=== PATIENT | female | born 1985 | race Hispanic/Latino ===

== ENCOUNTER 2018-01-31 11:17 | Emergency (ER) | payer OTHER, SELFPAY ==
[2018-01-31] MEDS ORDERED: CLINDAMYCIN IV 150 MG/ML (4 mL) VIAL ONE (11:45)
[2018-01-31] MEDS ORDERED: ONDANSETRON 4 MG (ODT) TAB ONE (11:45)
--- NOTE | 2018-01-31 12:17 | RAD REPORT ---
EXAM DESCRIPTION: CT - Head C Spine Mpr Wo Con - 01/31/2018 11:52 am CLINICAL HISTORY: Head and neck injury status post fall. Head and neck pain COMPARISON: February 2017 TECHNIQUE: Computed axial tomography of the head and cervical spine was obtained. Sagittal and coronal reconstruction was performed. All CT scans are performed using dose optimization technique as appropriate and may include automated exposure control or mA/KV adjustment according to patient size. FINDINGS: An intracranial bleed is not seen. The ventricles are normal in caliber. An extra-axial fl uid collection is not noted.Fluid within the visualized sinuses and mastoids is not seen A cervical fracture is not visualized. No dislocation is noted. IMPRESSION: No acute intracranial abnormality is seen. A cervical fracture is not visualized. If the patient continues to have symptoms to suggest intracra nial /spinal cord pathology then MRI would be recommended
--- NOTE | 2018-01-31 12:19 | RAD REPORT ---
EXAM DESCRIPTION: RAD - Pelvis - 01/31/2018 12:07 pm CLINICAL HISTORY: Pelvic pain status post injury FINDINGS: No fracture or dislocation is seen. If the patient continues to have symptoms to suggest an occult fracture then MRI would be recommended
--- NOTE | 2018-01-31 12:25 | ER ---
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 aj Reports right hip pain and pain to back of head. Patient believes she may have hit her head on the toilet, reports vomiting x 2 episodes. Ambulated to triage with limp. Patient drove herself to ER. Denies LOC. Care prior to arrival: None. Mechanism of Injury: Fall from standing position. Trauma event details: Injury occurred in the [facility], Injury occurred: at home. Injury occurred: January 31, 2018 Injury occurred at: 11:00. 11:22 Acuity: ANITA 3 aj 11:22 Method Of Arrival: Ambulatory 11:40 Transition of care: patient was not received from another setting of care. Onset of em symptoms was January 31, 2018. Risk Assessment: Do you want to hurt yourself or someone else? Patient reports no desire to harm self or others. Initial Sepsis Screen: Does the patient meet any 2 criteria? No. Patient's initial sepsis screen is negative. Does the patient have a suspected source of infection? No. Patient's initial sepsis screen is negative. 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 - Social history:: Smoking status: Patient/guardian denies using tobacco. - Ebola Screening: : Patient negative for fever greater than or equal to 101.5 degrees Fahrenheit, and additional compatible Ebola Virus Disease symptoms Patient denies exposure to infectious person Patient denies travel to an Ebola-affected area in the 21 days before illness onset No symptoms or risks identified at this time. Screenin:28 Abuse screen: Denies threats or abuse. Nutritional screening: No deficits noted. em Tuberculosis screening: No symptoms or risk factors identified. Fall Risk Fall in past 12 months (25 points). Gait- Normal/Bed Rest/Wheelchair (0 pts) Mental Status- Oriented to own ability (0 pts). Total Jon Fall Scale indicates Low Risk Score (25-44 pts). Side Rails Up X 2 Frequent Obs/Assesments occuring. Primary Survey: 11:22 A: Airway: patent. Breathing/Chest: Respiratory pattern: regular, Respiratory effort: aj spontaneous, unlabored, Breath sounds: clear, Chest inspection: symmetrical rise and fall of the chest. Circulation: Skin color: pink. Disability Alert. 12:20 Reassessment Airway Airway Patent Breathing/Chest Respiratory pattern Regular em Circulation Color [place] Disability Alert. Assessment: 11:22 General: Appears in no apparent distress. uncomfortable, Behavior is calm, cooperative, aj appropriate for age. Pain: Complains of pain in scalp, right hip and right leg. Neuro: Level of Consciousness is awake, alert, obeys commands, Oriented to person, place, time, situation, Appropriate for age. Respiratory: Airway is patent Respiratory effort is even, unlabored, Respiratory pattern is regular, symmetrical. GI: Reports nausea. Derm: Skin is intact, is healthy with good turgor, Skin is pink, warm \T\ dry. normal. Musculoskeletal: Reports pain in right hip and right leg. 12:20 Reassessment: Patient appears in no apparent distress at this time. Patient and/or em family updated on plan of care and expected duration. Pain level reassessed. Patient is alert, oriented x 3, equal unlabored respirations, skin warm/dry/pink. Vital Signs: 11:22 BP 136 / 89; Pulse 81; Resp 19; Temp 97.7; Pulse Ox 99% on R/A; Weight 113.4 kg; Height aj 5 ft. 4 in. (162.56 cm); 12:20 BP 124 / 74; Pulse 72; Resp 16; Temp 98.0(O); Pulse Ox 98% on R/A; Pain 5/10; em 11:22 Body Mass Index 42.91 (113.40 kg, 162.56 cm) aj [place] Coma Score: 11:22 Eye Response: spontaneous(4). Verbal Response: oriented(5). Motor Response: obeys aj commands(6). Total: 15. Trauma Score (Adult): 11:22 Eye Response: spontaneous(1); Verbal Response: oriented(1); Motor Response: obeys aj commands(2); Systolic BP: > 89 mm Hg(4); Respiratory Rate: 10 to 29 per min(4); [place] Score: 15; Trauma Score: 12 ED Course: 11:19 Patient arrived in ED. mr 11:24 Triage completed. aj 11:26 Андрей Munoz LVN is Primary Nurse. em 11:26 Arm band placed on right wrist. Patient placed in an exam room. aj 11:27 Humble Mendez PA is PHCP. jmm 11:27 Mac Jones MD is Attending Physician. [facility] 11:28 PHCP role handed off by Humble Mendez PA snw 11:28 Rafaela Smith FNP-C is PHCP. snw 11:28 Patient has correct armband on for positive identification. Bed in low position. Call em light in reach. 11:34 Radiology exam delayed due to test not completed at this time. sj 11:40 Patient maintains SpO2 saturation greater than 95% on room air. Thermoregulation: warm em blanket given to patient. 11:49 CT completed. Patient tolerated procedure well. Patient moved to CT via stretcher. mw3 Patient moved to radiology. 11:52 CT Head C Spine In Process Unspecified. EDMS 12:07 Pelvis XRAY In Process Unspecified. EDMS 12:36 No provider procedures requiring assistance completed. Patient did not have IV access em during this emergency room visit. Administered Medications: 11:43 Drug: Zofran 4 mg Route: PO; em 12:39 Follow up: Response: Nausea is decreased em 11:45 Drug: Clindamycin 300 mg Route: IM; Site: left gluteus; em 12:39 Follow up: Response: No adverse reaction em Intake: 12:20 PO: 0ml; Total: 0ml. em Outcome: 12:24 Discharge ordered by . snw 12:36 Discharged to home ambulatory. em 12:36 Condition: good 12:36 Discharge instructions given to patient, Instructed on discharge instructions, follow up and referral plans. medication usage, Demonstrated understanding of instructions, follow-up care, medications, Prescriptions given X 2. 12:37 Patient's length of stay was not longer than 2 hours. em 12:40 Patient left the ED. em Signatures: Dispatcher [employer] Kristine Oquendo, RN RN Rafaela Fuentes, USED BUILDING MATERIALS YARD WORKER-C USED BUILDING MATERIALS YARD WORKER-Csnw Humble Mendez PA PA jmm Rivera, Mary mr Balaji, Андрей Moreland, FAMILY SOCIOLOGIST FAMILY SOCIOLOGIST em Marisa Diehl mw3
--- NOTE | 2018-01-31 12:25 | EDPHYS ---
Physician Documentation [facility] Name: Meredith Marroquin Age: 32 yrs Sex: Female : 1985 Arrival Date: 01/31/2018 Time: 11:19 Bed 13 Private MD: ED Physician Mac Jones HPI: 01/31 11:40 This 32 yrs old Female presents to ER via Ambulatory with complaints of Fall snw Injury. 11:40 Details of fall: The patient fell from an upright position, showering. Onset: The snw symptoms/episode began/occurred suddenly, just prior to arrival. Associated injuries: The patient sustained injury to the head, injury to the chest, contusion of right hip. Severity of symptoms: At their worst the symptoms were moderate, in the emergency department the symptoms are unchanged. The patient has not experienced similar symptoms in the past. pt was showering to get ready for Doctor's appt to see about abscess to left upper shoulder when she slipped and fell onto right hip on bathtub ledge, may have struck head on toilet, no LOC but pt did vomit x [address] to the ED. Denies LOC. 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 - Social history:: Smoking status: Patient/guardian denies using tobacco. - Ebola Screening: : Patient negative for fever greater than or equal to 101.5 degrees Fahrenheit, and additional compatible Ebola Virus Disease symptoms Patient denies exposure to infectious person Patient denies travel to an Ebola-affected area in the 21 days before illness onset No symptoms or risks identified at this time. ROS: 11:36 Constitutional: Negative for fever, chills, and weight loss, Eyes: Negative for injury, snw pain, redness, and discharge, ENT: Negative for injury, pain, and discharge, Neck: Negative for injury, pain, and swelling, Cardiovascular: Negative for chest pain, palpitations, and edema, Respiratory: Negative for shortness of breath, cough, wheezing, and pleuritic chest pain. 11:36 Back: Negative for injury and pain, : Negative for injury, bleeding, discharge, and swelling, Skin: Negative for injury, rash, and discoloration. 11:36 Abdomen/GI: Positive for vomiting, x 2. 11:36 MS/extremity: Positive for injury or acute deformity, contusion, of the right lower back and right gluteus miles. 11:36 Neuro: Positive for dizziness, Negative for loss of consciousness. Exam: 11:36 Constitutional: This is a well developed, well nourished patient who is awake, alert, snw and in no acute distress. Head/Face: Normocephalic, atraumatic. Eyes: Pupils equal round and reactive to light, extra-ocular motions intact. Lids and lashes normal. Conjunctiva and sclera are non-icteric and not injected. Cornea within normal limits. Periorbital areas with no swelling, redness, or edema. ENT: Nares patent. No nasal discharge, no septal abnormalities noted. Tympanic membranes are normal and external auditory canals are clear. Oropharynx with no redness, swelling, or masses, exudates, or evidence of obstruction, uvula midline. Mucous membranes moist. Neck: Trachea midline, no thyromegaly or masses palpated, and no cervical lymphadenopathy. Supple, full range of motion without nuchal rigidity, or vertebral point tenderness. No Meningismus. Chest/axilla: Normal chest wall appearance and motion. Nontender with no deformity. No lesions are appreciated. Cardiovascular: Regular rate and rhythm with a normal S1 and S2. No gallops, murmurs, or rubs. Normal PMI, no JVD. No pulse deficits. Respiratory: Lungs have equal breath sounds bilaterally, clear to auscultation and percussion. No rales, rhonchi or wheezes noted. No increased work of breathing, no retractions or nasal flaring. Abdomen/GI: Soft, non-tender, with normal bowel sounds. No distension or tympany. No guarding or rebound. No evidence of tenderness throughout. Back: No spinal tenderness. No costovertebral tenderness. Full range of motion. right hip contusion, ambulatory, no vertebral tenderness, + soft tissue area of induration to left upper shoulder, cellulitis (spouse opened and expressed pus from area last pm) Skin: Warm, dry with normal turgor. Normal color with no rashes, no lesions, and no evidence of cellulitis except as noted above MS/ Extremity: Pulses equal, no cyanosis. Neurovascular intact. Full, normal range of motion. Neuro: Awake and alert, GCS 15, oriented to person, place, time, and situation. Cranial nerves II-XII grossly intact. Motor strength 5/5 in all extremities. Sensory grossly intact. Cerebellar exam normal. Normal gait. Psych: Awake, alert, with orientation to person, place and time. Behavior, mood, and affect are within normal limits. Vital Signs: 11:22 BP 136 / 89; Pulse 81; Resp 19; Temp 97.7; Pulse Ox 99% on R/A; Weight 113.4 kg; Height aj 5 ft. 4 in. (162.56 cm); 12:20 BP 124 / 74; Pulse 72; Resp 16; Temp 98.0(O); Pulse Ox 98% on R/A; Pain 5/10; em 11:22 Body Mass Index 42.91 (113.40 kg, 162.56 cm) aj [place] Coma Score: 11:22 Eye Response: spontaneous(4). Verbal Response: oriented(5). Motor Response: obeys aj commands(6). Total: 15. Trauma Score (Adult): 11:22 Eye Response: spontaneous(1); Verbal Response: oriented(1); Motor Response: obeys aj commands(2); Systolic BP: > 89 mm Hg(4); Respiratory Rate: 10 to 29 per min(4); [place] Score: 15; Trauma Score: 12 MDM: 11:28 Patient medically screened. snw 12:27 Data reviewed: vital signs, nurses notes, radiologic studies, CT scan. Data snw interpreted: Pulse oximetry: on room air is 99 %. Interpretation: normal. Counseling: I had a detailed discussion with the patient and/or guardian regarding: the historical points, exam findings, and any diagnostic results supporting the discharge/admit diagnosis, the presence of at least one elevated blood pressure reading (>120/80) during this emergency department visit, the need for outpatient follow up, to return to the emergency department if symptoms worsen or persist or if there are any questions or concerns that arise at home. Special discussion: I have referred the patient to see his PCP for further evaluation of high blood pressure. Based on the patient's history, exam and DX evaluation, there is no indication for emergent intervention or inpatient TX. It is understood by the patient/guardian that if the SXs persist or worsen they need to return immediately for re-evaluation. I discussed in detail with the patient the higher chance of wound infection based on his presenting history. Based on the history and exam findings, there is no indication for further emergent testing or inpatient evaluation. I discussed with the patient/guardian the need to see the primary care provider for further evaluation of the symptoms. 01/31 11:29 Order name: CT Head C Spine; Complete Time: 12:19 snw 01/31 11:41 Order name: Urine Dipstick--Ancillary (enter results) eb 01/31 11:41 Order name: Urine --Ancillary (enter results) eb 01/31 11:44 Order name: Pelvis XRAY; Complete Time: 12:22 snw 01/31 11:29 Order name: Urine Test (obtain specimen); Complete Time: 11:37 snw 01/31 11:29 Order name: Urine Dipstick-Ancillary (obtain specimen); Complete Time: 11:37 snw Administered Medications: 11:43 Drug: Zofran 4 mg Route: PO; em 12:39 Follow up: Response: Nausea is decreased em 11:45 Drug: Clindamycin 300 mg Route: IM; Site: left gluteus; em 12:39 Follow up: Response: No adverse reaction em Disposition: 13:41 Co-signature as Attending Physician, Mac Jones MD. rn Disposition: 01/31/18 12:24 Discharged to Home. Impression: Fall on same level, unspecified, Cutaneous abscess of back [any part, except buttock]. - Condition is Stable. - Discharge Instructions: Skin Abscess, Fall Prevention in the Home, Heat Therapy. - Prescriptions for Clindamycin HCl 300 mg Oral Capsule - take 1 capsule by ORAL route every 6 hours for 10 days; 40 capsule. Diclofenac Sodium 75 mg Oral Tablet Sustained Release - take 1 tablet by ORAL route 2 times per day; 30 tablet. orphenadrine citrate 100 mg Oral Tablet Sustained Release - take 1 tablet by ORAL route 2 times per day As needed; 20 tablet. - Work release form, Medication Reconciliation Form, Thank You Letter, Antibiotic Education, Prescription Opioid Use form. - Follow up: Private Physician; When: 2 - 3 days; Reason: Recheck today's complaints, Continuance of care, Re-evaluation by your physician. Follow up: Emergency Department; When: As needed; Reason: Worsening of condition. Signatures: Dispatcher [employer] EDMO Kristine Ghotra, RN RN Rafaela Fuentes, ATOMIC PHYSICS PROFESSOR-C ATOMIC PHYSICS PROFESSOR-Csnw Андрей Munoz, BOTTOM LINER BOTTOM LINER em Mac Jones MD MD internal consultant: (The following items were deleted from the chart) 11:38 11:30 UA MICROSCOPIC+U.LAB.BRZ ordered. [facility] EDMO 11:39 11:30 Urine Culture+BA.LAB.BRZ ordered. [facility] EDMO 12:40 12:24 01/31/2018 12:24 Discharged to Home. Impression: Fall on same level, unspecified; em Cutaneous abscess of back [any part, except buttock]. Condition is Stable. Forms are Medication Reconciliation Form, Thank You Letter, Antibiotic Education, Prescription Opioid Use. Follow up: Private Physician; When: 2 - 3 days; Reason: Recheck today's complaints, Continuance of care, Re-evaluation by your physician. Follow up: Emergency Department; When: As needed; Reason: Worsening of condition. snw
[2018-01-31 13:14] VITALS: BP 124/74; TEMP 98; O2SAT 98
[2018-01-31 14:04] LABS: Urine Blood TRACE (NEG); Urine Glucose NEGATIVE (NEG); Urine Protein NEGATIVE (NEG); Urine pH 5.5 (5.0-7.0)
== END 2018-01-31 12:40 | disposition home or self-care (01) ==
LOC: ER 11:17
DX: L02.212 Cutaneous abscess of back [any part, except buttock and flank] (principal); W01.198A Fall on same level from slipping, tripping and stumbling with subsequent striking against other object, initial encounter; Y93.E1 Activity, personal bathing and showering; Y92.9 Unspecified place or not applicable
CPT/HCPCS: 70450; 72125; 72170; 81003; 81025; 96372; 99284; S0077

== ENCOUNTER 2019-02-21 12:39 | Emergency (ER) | payer OTHER ==
[2019-02-21] MEDS ORDERED: NA CHLORIDE 0.9% 1,000 ML ONE (13:04)
[2019-02-21] MEDS ORDERED: KETOROLAC 30 MG/ML INJ ONE (13:04)
[2019-02-21] MEDS ORDERED: ONDANSETRON 4 MG/2 ML VIAL ONE (13:04)
[2019-02-21 13:31] LABS: Absolute Lymphocytes (CBC) 0.9 K/uL (0.7-4.9); Basophils % 0.4 % (0-1.3); Hematocrit 40.1 % (36.0-45.0); Lymphocytes % 12.1 % (15.3-44.8); MPV 7.9 fL (7.6-11.3); RBC Red Blood Cell Count 4.56 M/uL (3.86-4.86)
[2019-02-21 13:43] LABS: ALT/SGPT 19 U/L (12-78); AST/SGOT 4 U/L (15-37); Albumin 3.6 g/dL (3.4-5.0); Alkaline Phosphatase 89 U/L (45-117); BUN Blood Urea Nitrogen 9 mg/dL (7-18); Bicarbonate 27 mmol/L (21-32); Bilirubin Direct 0.2 mg/dL (0-0.2); Bilirubin Total 0.7 mg/dL (0.2-1.0); Glucose Level 87 mg/dL (74-106); Lipase 186 U/L (73-393); Potassium 3.6 mmol/L (3.5-5.1); Protein, Total 8.2 g/dL (6.4-8.2); Sodium Level 139 mmol/L (136-145)
[2019-02-21 14:09] LABS: Urine Blood 1+ (NEG); Urine Glucose NEGATIVE (NEG); Urine Protein NEGATIVE (NEG); Urine pH 5.5 (5.0-7.0)
--- NOTE | 2019-02-21 14:11 | RAD REPORT ---
EXAM DESCRIPTION: CT - Stone Protocol - 02/21/2019 2:01 pm CLINICAL HISTORY: Flank pain. Abd pain;Flank pain COMPARISON: Abdomen Pelvis W Contrast dated 08/30/2016 TECHNIQUE: Axial images were obtained without oral or IV contrast. Lack of contrast limits solid org an and vascular assessment. The [id number] spans the entirety of the system partially obscuring uppermost abdomen and lung bases. Coronal reformatted images were obtained and reviewed. All CT scans are performed using dose optimization technique as appropriate and may include automated exposure control or mA/KV adjustment according to patient size. FINDINGS: The lower lung jaffe are clear. Imaged portions of the liver and spleen show no suspicious findings on non-contrast imaging. The panc reas and adrenal glands are normal. No pathologic lymphadenopathy in the abdomen or pelvis. No urinary tract stones or obstructive uropathy. No bowel obstruction, free air, free fluid or abscess. Normal appendix noted. No significant bony abnormality. IUD is present in the uterus. IMPRESSION: No urinary tract stones or obstructive uropathy.
--- NOTE | 2019-02-21 14:28 | ER ---
Nurse's Notes [facility] Name: Meredith Marroquin Age: 33 yrs Sex: Female : 1985 Arrival Date: 02/21/2019 Time: 12:40 Bed 20 Private MD: Diagnosis: Generalized abdominal pain;Vomiting, unspecified Presentation: 02/21 12:47 Presenting complaint: Patient states: "Back pain and abdominal pain, she saw her Dr luis yesterday and had an ultrasound, that said she had a lot of liver inflammation, so I had lab work that they are suppose to get back Saturday but the pain came back worse last night" Patient reports epigastric pain, vomiting, back pain. Transition of care: patient was not received from another setting of care. Onset of symptoms was 2018. Risk Assessment: Do you want to hurt yourself or someone else? Patient reports no desire to harm self or others. Initial Sepsis Screen: Does the patient meet any 2 criteria? No. Patient's initial sepsis screen is negative. Does the patient have a suspected source of infection? Yes: Acute abdominal pain. Care prior to arrival: None. 12:47 Method Of Arrival: Ambulatory aj 12:47 Acuity: ANITA 3 aj1 Triage Assessment: 12:49 General: Appears in no apparent distress. uncomfortable, Behavior is calm, cooperative, aj1 appropriate for age. Pain: Complains of pain in back and epigastric area Pain currently is 7 out of 10 on a pain scale. Neuro: Level of Consciousness is awake, alert, obeys commands. Cardiovascular: Patient's skin is warm and dry. Respiratory: Airway is patent Respiratory effort is even, unlabored, Respiratory pattern is regular, symmetrical. GI: Reports upper abdominal pain, nausea, vomiting. 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 - Social history:: Smoking status: Patient/guardian denies using tobacco. - Ebola Screening: : Patient denies travel to an Ebola-affected area in the 21 days before illness onset. Screenin:55 Abuse screen: Denies threats or abuse. Nutritional screening: No deficits noted. rb1 Tuberculosis screening: No symptoms or risk factors identified. Fall Risk None identified. Assessment: 12:55 General: Appears uncomfortable, Behavior is calm, cooperative, Reports fever for. Pain: rb1 Complains of pain in epigastric area Pain currently is 8 out of 10 on a pain scale. at worst was 10 out of 10 on a pain scale. Pain began x 5 days. Neuro: Level of Consciousness is awake, alert, obeys commands, Oriented to person, place, time, situation. Cardiovascular: Capillary refill < 3 seconds is brisk in bilateral fingers. Respiratory: Airway is patent Respiratory effort is even, unlabored, Respiratory pattern is regular, symmetrical. GI: Bowel sounds present X 4 quads. Abd is soft in epigastric area Reports diarrhea, nausea, vomiting. : No signs and/or symptoms were reported regarding the genitourinary system. Derm: Skin is pink, warm \\T\\ dry. 13:48 Reassessment: Patient appears in no apparent distress at this time. No changes from rb1 previously documented assessment. 14:45 Reassessment: Patient appears in no apparent distress at this time. Patient and/or rb1 family updated on plan of care and expected duration. Pain level reassessed. Patient is alert, oriented x 3, equal unlabored respirations, skin warm/dry/pink. Vital Signs: 12:49 BP 152 / 93; Pulse 86; Resp 18; Temp 98.3; Pulse Ox 98% on R/A; Weight 113.85 kg (R); aj1 Height 5 ft. 4 in. (162.56 cm) (R); Pain 7/10; 13:48 BP 125 / 64; Pulse 67; Resp 17; Pulse Ox 97% ; Pain 7/10; rb1 14:45 BP 128 / 71; Pulse 69; Resp 17; Pulse Ox 99% on R/A; Pain 5/10; rb1 12:49 Body Mass Index 43.08 (113.85 kg, 162.56 cm) aj1 ED Course: 12:40 Patient arrived in ED. as 12:46 [facility] kb 12:46 Nikolas Serrano MD is Attending Physician. kb 12:49 Triage completed. aj1 12:49 Arm band placed on Patient placed in an exam room. aj1 12:55 Patient has correct armband on for positive identification. Bed in low position. Call rb1 light in reach. Side rails up X 1. Pulse ox on. NIBP on. 13:00 Katelynn Treviño, RN is Primary Nurse. rb1 13:10 Inserted saline lock: 22 gauge in right antecubital area, using aseptic technique. rb1 Blood collected. 14:02 CT completed. Patient tolerated procedure well. Patient moved back from CT. mw3 14:02 CT Stone Protocol In Process Unspecified. EDMS 14:59 No provider procedures requiring assistance completed. IV discontinued, intact, rb1 bleeding controlled, No redness/swelling at site. Pressure dressing applied. Administered Medications: 13:10 Drug: NS 0.9% 1000 ml Route: IV; Rate: 1000 ml; Site: right antecubital; rb1 14:22 Follow up: IV Status: Completed infusion rb1 13:10 Drug: Zofran 4 mg Route: IVP; Site: right antecubital; rb1 13:25 Follow up: Response: No adverse reaction; Nausea is decreased rb1 13:10 Drug: TORadol - Ketorolac 15 mg Route: IVP; Site: right antecubital; rb1 13:25 Follow up: Response: No adverse reaction; Pain is decreased rb1 Outcome: 14:28 Discharge ordered by MD. kb 14:59 Patient left the ED. rb1 14:59 Discharged to home ambulatory. rb1 14:59 Condition: stable 14:59 Discharge instructions given to patient, Instructed on discharge instructions, follow up and referral plans. medication usage, Demonstrated understanding of instructions, follow-up care, medications, Prescriptions given X 2. Signatures: Dispatcher [employer] ED[facility] Jessica Harris, STAFF INTERNIST OFFICE BASED ONLY-C STAFF INTERNIST OFFICE BASED ONLY-Ckb Yamila Sandy, RN RN aj1 Leatha Christianson as Katelynn Treviño, RN RN rb1 Marisa Diehl mw3 Corrections: (The following items were deleted from the chart) 13:25 12:55 GI: Bowel sounds present X 4 quads. Reports diarrhea, nausea, vomiting, rb1 rb1
--- NOTE | 2019-02-21 14:28 | EDPHYS ---
Physician Documentation [facility] Name: Meredith Marroquin Age: 33 yrs Sex: Female : 1985 Arrival Date: 02/21/2019 Time: 12:40 Bed 20 Private MD: ED Physician Nikolas Serrano HPI: 02/21 14:48 This 33 yrs old Female presents to ER via Ambulatory with complaints of kb Abdominal Pain, Headache. 14:48 The patient presents with abdominal pain. Onset: The symptoms/episode began/occurred 5 kb day(s) ago. The symptoms do not radiate. Associated signs and symptoms: Pertinent positives: nausea, vomiting, and diarrhea, fever. The symptoms are described as constant. Modifying factors: The symptoms are alleviated by nothing, the symptoms are aggravated by nothing. Severity of pain: At its worst the pain was moderate in the emergency department the pain is unchanged. The patient has not experienced similar symptoms in the past. The patient has been recently seen by a physician: the patient's primary care provider, yesterday. 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 - Social history:: Smoking status: Patient/guardian denies using tobacco. - Ebola Screening: : Patient denies travel to an Ebola-affected area in the 21 days before illness onset. ROS: 14:47 ENT: Negative for injury, pain, and discharge, Neck: Negative for injury, pain, and kb swelling, Cardiovascular: Negative for chest pain, palpitations, and edema, Respiratory: Negative for shortness of breath, cough, wheezing, and pleuritic chest pain, Back: Negative for injury and pain, MS/Extremity: Negative for injury and deformity, Skin: Negative for injury, rash, and discoloration, Neuro: Negative for headache, weakness, numbness, tingling, and seizure. 14:47 Constitutional: Positive for fever. 14:47 Abdomen/GI: Positive for abdominal pain, nausea, vomiting, and diarrhea. Exam: 14:48 Constitutional: This is a well developed, well nourished patient who is awake, alert, kb and in no acute distress. Head/Face: Normocephalic, atraumatic. ENT: Nares patent. No nasal discharge, no septal abnormalities noted. Tympanic membranes are normal and external auditory canals are clear. Oropharynx with no redness, swelling, or masses, exudates, or evidence of obstruction, uvula midline. Mucous membranes moist. Neck: Trachea midline, no thyromegaly or masses palpated, and no cervical lymphadenopathy. Supple, full range of motion without nuchal rigidity, or vertebral point tenderness. No Meningismus. Chest/axilla: Normal chest wall appearance and motion. Nontender with no deformity. No lesions are appreciated. Cardiovascular: Regular rate and rhythm with a normal S1 and S2. No gallops, murmurs, or rubs. Normal PMI, no JVD. No pulse deficits. Respiratory: Lungs have equal breath sounds bilaterally, clear to auscultation and percussion. No rales, rhonchi or wheezes noted. No increased work of breathing, no retractions or nasal flaring. Abdomen/GI: Soft, non-tender, with normal bowel sounds. No distension or tympany. No guarding or rebound. No evidence of tenderness throughout. Back: No spinal tenderness. No costovertebral tenderness. Full range of motion. Skin: Warm, dry with normal turgor. Normal color with no rashes, no lesions, and no evidence of cellulitis. MS/ Extremity: Pulses equal, no cyanosis. Neurovascular intact. Full, normal range of motion. Neuro: Awake and alert, GCS 15, oriented to person, place, time, and situation. Cranial nerves II-XII grossly intact. Motor strength 5/5 in all extremities. Sensory grossly intact. Cerebellar exam normal. Normal gait. Vital Signs: 12:49 BP 152 / 93; Pulse 86; Resp 18; Temp 98.3; Pulse Ox 98% on R/A; Weight 113.85 kg (R); aj1 Height 5 ft. 4 in. (162.56 cm) (R); Pain 7/10; 13:48 BP 125 / 64; Pulse 67; Resp 17; Pulse Ox 97% ; Pain 7/10; rb1 14:45 BP 128 / 71; Pulse 69; Resp 17; Pulse Ox 99% on R/A; Pain 5/10; rb1 12:49 Body Mass Index 43.08 (113.85 kg, 162.56 cm) aj1 MDM: 12:51 Patient medically screened. kb 14:47 Data reviewed: vital signs, nurses notes. Data interpreted: Pulse oximetry: on room air kb is 97 %. Interpretation: normal. Counseling: I had a detailed discussion with the patient and/or guardian regarding: the historical points, exam findings, and any diagnostic results supporting the discharge/admit diagnosis, lab results, radiology results, the need for outpatient follow up, to return to the emergency department if symptoms worsen or persist or if there are any questions or concerns that arise at home. 02/21 12:54 Order name: Basic Metabolic Panel; Complete Time: 13:49 kb 02/21 12:54 Order name: CBC with Diff; Complete Time: 13:38 kb 02/21 12:54 Order name: Hepatic Function; Complete Time: 13:49 kb 02/21 12:54 Order name: Lipase; Complete Time: 13:49 kb 02/21 13:30 Order name: Urine Dipstick--Ancillary (enter results); Complete Time: 14:11 eb 02/21 13:30 Order name: Urine --Ancillary (enter results); Complete Time: 14:11 eb 02/21 12:54 Order name: IV Saline Lock; Complete Time: 13:21 kb 02/21 12:54 Order name: Labs collected and sent; Complete Time: 13:21 kb 02/21 12:54 Order name: Urine Dipstick-Ancillary (obtain specimen); Complete Time: 13:30 kb 02/21 13:38 Order name: Flu; Complete Time: 14:27 kb 02/21 13:40 Order name: CT Stone Protocol; Complete Time: 14:13 kb Administered Medications: 13:10 Drug: NS 0.9% 1000 ml Route: IV; Rate: 1000 ml; Site: right antecubital; rb1 14:22 Follow up: IV Status: Completed infusion rb1 13:10 Drug: Zofran 4 mg Route: IVP; Site: right antecubital; rb1 13:25 Follow up: Response: No adverse reaction; Nausea is decreased rb1 13:10 Drug: TORadol - Ketorolac 15 mg Route: IVP; Site: right antecubital; rb1 13:25 Follow up: Response: No adverse reaction; Pain is decreased rb1 Disposition: 02/21/19 14:28 Discharged to Home. Impression: Generalized abdominal pain, Vomiting, unspecified. - Condition is Stable. - Discharge Instructions: Nausea and Vomiting, Adult, [id number], Abdominal Pain, Adult, [id number]. - Prescriptions for Bentyl 20 mg Oral Tablet - take 1 tablet by ORAL route every 6 hours As needed; 20 tablet. Zofran 4 mg Oral Tablet - take 1 tablet by ORAL route every 6 hours As needed; 20 tablet. - Medication Reconciliation Form, Thank You Letter, Antibiotic Education, Prescription Opioid Use form. - Follow up: Emergency Department; When: As needed; Reason: Worsening of condition. Follow up: Private Physician; When: 2 - 3 days; Reason: Recheck today's complaints, Continuance of care, Re-evaluation by your physician. Addendum: 02/24/2019 07:07 Co-signature as Attending Physician, Nikolas Serrano MD I agree with the assessment and c porter plan of care. Signatures: Dispatcher [employer] EDJessica Canales, KE-Sha DEMPSEY-Yamila Lee, RN RN aj1 Nikolas Serrano MD MD cha Barber, Rebecca, RN RN rb1 Corrections: (The following items were deleted from the chart) 02/21 14:28 14:28 02/21/2019 14:28 Discharged to Home. Impression: Generalized abdominal pain. kb Condition is Stable. Forms are Medication Reconciliation Form, Thank You Letter, Antibiotic Education, Prescription Opioid Use. Follow up: Emergency Department; When: As needed; Reason: Worsening of condition. Follow up: Private Physician; When: 2 - 3 days; Reason: Recheck today's complaints, Continuance of care, Re-evaluation by your physician. kb 14:59 14:28 02/21/2019 14:28 Discharged to Home. Impression: Generalized abdominal pain; rb1 Vomiting, unspecified. Condition is Stable. Forms are Medication Reconciliation Form, Thank You Letter, Antibiotic Education, Prescription Opioid Use. Follow up: Emergency Department; When: As needed; Reason: Worsening of condition. Follow up: Private Physician; When: 2 - 3 days; Reason: Recheck today's complaints, Continuance of care, Re-evaluation by your physician. kb
[2019-02-21 16:51] VITALS: TEMP 98.3
[2019-02-21 16:52] VITALS: BP 125/64; O2SAT 97
== END 2019-02-21 14:59 | disposition home or self-care (01) ==
LOC: ER 12:39
DX: R11.10 Vomiting, unspecified (principal)
CPT/HCPCS: 96361; 85025; 80048; 36415; 81025; 80076; 81003; 83690; 87804 ×2; 76377; 74176; 96375; 96374; 99284; J7030; J2405

== ENCOUNTER 2019-11-23 08:06 | Day surgery (SDC) | payer OTHER ==
[2019-11-11 14:43] LABS: Basophils % 0.7 % (0-1.3); Hematocrit 40.2 % (36.0-45.0); Lymphocytes % 24.4 % (15.3-44.8); MPV 8.1 fL (7.6-11.3); RBC Red Blood Cell Count 4.53 M/uL (3.86-4.86)
[2019-11-11 15:17] LABS: ALT/SGPT 19 U/L (12-78); AST/SGOT 6 U/L (15-37); Albumin 3.6 g/dL (3.4-5.0); Alkaline Phosphatase 85 U/L (45-117); Amylase 43 U/L (25-115); BUN Blood Urea Nitrogen 17 mg/dL (7-18); Bicarbonate 25 mmol/L (21-32); Bilirubin Direct 0.1 mg/dL (0-0.2); Bilirubin Total 0.5 mg/dL (0.2-1.0); Glucose Level 85 mg/dL (74-106); Lipase 176 U/L (73-393); Protein, Total 8.2 g/dL (6.4-8.2); Sodium Level 142 mmol/L (136-145)
--- OUTSIDE RECORDS SUMMARY | 2019-11-23 08:12 | XMS REPORT | Continuity of Care Document ---
:1985 Author Organization [facility] t Address [address] [place] [address] Care Team Providers Name Role Phone Lab, Fam Pob I Attending Clinician Unavailable Problems This patient has no known problems. Allergies, Adverse Reactions, Alerts This patient has no known allergies or adverse reactions. Medications This patient has no known medications. Procedures This patient has no known procedures. Encounters Start End Encounter Admission Attending Care Care Encounter Source Date/Time Date/Time Type Type Clinicians Facility Department ID 2019-11-05 2019-11-05 Laboratory Lab, [facility] [id number] 15:25:31 15:45:31 Only Fam Pob I [facility] [id number] [place] [id number] Professio [phone] [place] [address] [address] One Results This patient has no known results.
[2019-11-23 08:27] LABS: Specific Gravity 1.025 (1.005-1.030)
[2019-11-23] MEDS ORDERED: Ringers Lactate 1,000 ML IV ONE ×2 (08:39→10:49)
[2019-11-23] MEDS ORDERED: CEFOXITIN/SWI 1gm 0 GM/0 ML SYR ONE (08:39)
[2019-11-23] MEDS ORDERED: propofoL 200 MG/20 ML VIAL IV ONE (08:41)
[2019-11-23] MEDS ORDERED: KETOROLAC 30 MG/ML INJ ONE (08:42)
[2019-11-23] MEDS ORDERED: dexAMETHasone 10 MG/ML VIAL ONE (08:42)
[2019-11-23] MEDS ORDERED: MIDAZOLAM HCL 2 MG/2 ML INJ ONE (08:42)
[2019-11-23] MEDS ORDERED: FENTANYL CITR 100 MCG/2 ML ONE ×2 (08:42→10:12)
[2019-11-23] MEDS ORDERED: LIDOCAINE 2% MPF 5 ML VIAL ONE (08:42)
[2019-11-23] MEDS ORDERED: ROCURONIUM 50 MG/5 ML VIAL IV ONE ×2 (08:42→09:33)
[2019-11-23] MEDS ORDERED: DIPHENHYDRAMINE 50 MG/ML VIAL ONE (08:42)
[2019-11-23] MEDS ORDERED: ONDANSETRON 4 MG/2 ML VIAL ONE (08:43)
[2019-11-23] MEDS ORDERED: GLYCOPYRROLATE 0.2 MG/ML SYR ONE (10:42)
[2019-11-23] MEDS ORDERED: NEOSTIGMINE 1 MG/ML -5 ML ONE (10:45)
[2019-11-23] MEDS: HYDROMORPHONE HCL 1 MG/ML INJ ONE ×2 (11:19→11:24)
[2019-11-23] MEDS ORDERED: PROMETHAZINE INJ 25 MG/ML AMP ONE (11:33)
[2019-11-23] MEDS: FENTANYL CITR 100 MCG/2 ML ONE ×2 (11:34→11:49)
--- NOTE | 2019-11-23 12:05 | OP ---
Date of Procedure: 11/23/2019 Surgeon: Raul Nieves MD Pediatric Physician: SOCORRO Silva. Preoperative Diagnosis: Back mass and chronic cholecystitis and biliary dyskinesia. Postoperative Diagnosis: Back mass and chronic cholecystitis and biliary dyskinesia. Procedures: 1.Wide excision of back mass 6 x 4 cm with layered closure. 2.Laparoscopic cholecystectomy. Estimated Blood Loss: Minimal. Specimen: Lipoma and gallbladder. Findings: As above. Anesthesia: General. Complications: None. Drains: Quarter-inch Haswell on the back wound. Disposition: The patient tolerated the procedure in stable condition, taken to Recovery in good gene ral condition. Description Of Procedure: The patient was brought to the OR and placed in supine position. General anesthesia was begun. The patient was placed in the right lateral position, prepped and draped in th e usual sterile fashion. Marcaine 0.5% was infiltrated locally. Then 15 blade was used to make appr oximately a 6 cm incision. Subcutaneous tissue was divided, subcutaneous tissue all the way down to the muscle layer. There was a fatty tumor present. It was approximately 6 x 4 cm in diameter. It w as excised. Sent to Pathology as specimen. Wound was irrigated. Bleeding was controlled with caute ry. Quarter-inch Haswell drain was placed in the empty space and secured with 3-0 nylon and 2-0 cold mill inspector carri was used to approximate the subcutaneous tissue and 3-0 nylon used to close skin. Sterile dressi ng was applied. Patient was awakened and taken to Recovery in good general condition. Then patient was placed in the supine position. The abdomen was prepped and draped in the usual sterile fashion. Marcaine 0.5% was infiltrated locally. 15 blade was used to make a 1 cm supraumbilical midline inci jero. Subcutaneous tissues were divided. Fascia was identified and divided. #1 Vicryl stay suture was placed. Peritoneal cavity was entered with sharp and blunt dissection. 12 mm trocar was placed into the peritoneal cavity under direct vision. Pneumoperitoneum was established and then three 5 mm trocars were placed, 1 in the epigastrium just to the right of midline and 2 in the right subcostal region. Laparoscopy revealed some inflammation at the infundibulum and the body of the gallbladder, which was taken down with sharp and blunt dissection. Fundus was retracted superiorly. Infundibulum was identified and retracted inferolaterally. Cystic duct and cystic artery were clearly identified with blunt dissection. Clips were placed. Both structures were divided and cautery was used to rem ove the gallbladder from the liver bed. Bleeding on the liver bed was controlled with cautery and th en gallbladder retrieved through the umbilicus via an EndoCatch bag. Right upper quadrant was examin ed. No evidence of bleeding or bile leakage appreciated. Then all trocars were removed under direct vision. There was some oozing noted from the epigastric trocar site. Then Endo Close was used. Th en #1 Vicryl was used to close this wound on the fascial level in the center fashion and the oozing w as easily controlled. No other bleeding noted from the other trocar sites subsequently. Stay suture s were tied to each other across the fascial defect. Subcutaneous wounds were irrigated. Bleeding w as controlled with cautery. 3-0 chromic was used to reapproximate subcutaneous tissue and shanon us ed to close the skin. Sterile dressing was applied. The patient was awakened and taken to Recovery in good general condition. Discharge Note: The patient will go to Day Surgery and home when stable. Disposition: Home. Condition: Stable. Discharge Instructions: Resume home medications and diet. Activity as tolerated. No heavy lifting. Remove outer dressing in 2 days. Shower. Keep wound clean, dry. Dry gauze to the back wound mason goldstein Tylenol No.3 one tablet p.o. q.4 p.r.n. pain, Keflex 500 mg p.o. q.8. Follow up in my office in 1 week. Call for appointment. Incentive spirometry is ordered. /MODL Voice ID: [id number] Report ID: [id number]
[2019-11-23] MEDS ORDERED: HYDROCODONE/APAP 7.5/325 MG TAB ONE (12:54)
[2019-11-23 13:14] VITALS: BP 167/78; TEMP 97.1; O2SAT 97
== END 2019-11-23 13:50 | disposition home or self-care (01) ==
LOC: OR 08:06
PROVIDERS: ATTEND Surgery
PROC: 0FT44ZZ Resection of Gallbladder, Percutaneous Endoscopic Approach (ICD-10-PCS; principal; 2019-11-23 09:00)
PROC: 0JB70ZZ Excision of Back Subcutaneous Tissue and Fascia, Open Approach (ICD-10-PCS; 2019-11-23 09:00)
DX: K81.1 Chronic cholecystitis (principal); D17.1 Benign lipomatous neoplasm of skin and subcutaneous tissue of trunk; Z11.59 Encounter for screening for other viral diseases
CPT/HCPCS: 47562; 21931; 85025; 80048; 36415; 82150; 81025; 80076; 88304 ×2; 83690; U0002; J2704; J2550; J1200; J2250; J3010 ×3; J1100; J1170; J2710; J7120 ×2; J2405; 88305

== ENCOUNTER 2019-11-23 20:45 | Observation (INO) | payer OTHER ==
--- OUTSIDE RECORDS SUMMARY | 2019-11-23 20:47 | XMS REPORT | Continuity of Care Document ---
:1985 Author Organization [facility] t Address [address] [place] [address] Care Team Providers Name Role Phone Lab, [...] Facility Department ID 2019-11-05 2019-11-05 Laboratory Lab, [facility] [id number] 15:25:31 15:45:31 Only Fam Pob I [facility] [id number] [place] [id number] Professio [phone] [place] [address] [address] One Results This patient has no known results.
[2019-11-23 21:49] LABS: Absolute Lymphocytes (CBC) 0.7 K/uL (0.7-4.9); Basophils % 0.3 % (0-1.3); Lymphocytes % 6.5 % (15.3-44.8); RBC Red Blood Cell Count 4.34 M/uL (3.86-4.86)
[2019-11-23] MEDS ORDERED: MORPHINE 4 MG/ML SYR ONE (21:51)
[2019-11-23] MEDS ORDERED: FAMOTIDINE 20 MG/2 ML VIAL IV ONE (21:52)
[2019-11-23] MEDS ORDERED: ONDANSETRON 4 MG/2 ML VIAL ONE (21:52)
[2019-11-23] MEDS ORDERED: NA CHLORIDE 0.9% 1,000 ML ONE (21:52)
[2019-11-23 22:03] LABS: ALT/SGPT 63 U/L (12-78); AST/SGOT 54 U/L (15-37); Albumin 3.3 g/dL (3.4-5.0); Alkaline Phosphatase 78 U/L (45-117); BUN Blood Urea Nitrogen 11 mg/dL (7-18); Bicarbonate 20 mmol/L (21-32); Bilirubin Direct < 0.1 mg/dL (0-0.2); Bilirubin Total 0.5 mg/dL (0.2-1.0); Glucose Level 145 mg/dL (74-106); Lipase 158 U/L (73-393); Potassium 3.6 mmol/L (3.5-5.1); Protein, Total 7.2 g/dL (6.4-8.2); Sodium Level 141 mmol/L (136-145)
--- NOTE | 2019-11-23 22:24 | ER ---
Nurse's Notes [facility] Name: Meredith Marroquin Age: 34 yrs Sex: Female : 1985 Arrival Date: 11/23/2019 Time: 20:47 Bed 13 Private MD: NATHALY COTA Diagnosis: Abdominal tenderness-sp lap appy;Bandemia;Atelectasis Presentation: 11/22 20:51 Chief complaint: Patient states: Gall bladder and mass on back removed today. C/O of ca1 pain at 1800 today. Took prescribed Tylenol 3# at 1645, and Advil 200mg x 3 at 2100. No relief and the pain has increased. Coronavirus screen: Client denies travel out of the [place] in the last 14 days. At this time, the client does not indicate any symptoms associated with coronavirus-19. Ebola Screen: Patient negative for fever greater than or equal to 101.5 degrees Fahrenheit, and additional compatible Ebola Virus Disease symptoms Patient denies exposure to infectious person. Patient denies travel to an Ebola-affected area in the 21 days before illness onset. No symptoms or risks identified at this time. Initial Sepsis Screen: Does the patient meet any 2 criteria? No. Patient's initial sepsis screen is negative. Does the patient have a suspected source of infection? No. Patient's initial sepsis screen is negative. Risk Assessment: Do you want to hurt yourself or someone else? Patient reports no desire to harm self or others. Onset of symptoms was November 23, 2019. 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 - Social history:: Smoking status: Patient denies any tobacco usage or history of. - Family history:: not pertinent. Screenin:57 Abuse screen: Denies threats or abuse. Denies injuries from another. Nutritional mg2 screening: No deficits noted. Tuberculosis screening: No symptoms or risk factors identified. Fall Risk IV access (20 points). Assessment: 21:57 General: Appears in no apparent distress. uncomfortable, Behavior is calm, cooperative. mg2 Pain: Complains of pain in abdomen. Neuro: Level of Consciousness is awake, alert, obeys commands, Oriented to person, place, time, situation. Cardiovascular: Capillary refill < 3 seconds Patient's skin is warm and dry. Respiratory: Airway is patent Respiratory effort is even, unlabored, Respiratory pattern is regular, symmetrical. GI: Reports lower abdominal pain, upper abdominal pain. : No signs and/or symptoms were reported regarding the genitourinary system. EENT: No signs and/or symptoms were reported regarding the EENT system. Derm: Skin is intact, is healthy with good turgor, Skin is pink, warm \T\ dry. normal. Musculoskeletal: Circulation, motion, and sensation intact. Capillary refill < 3 seconds. 11/23 10:27 Reassessment: Gave report to ELMA Alvarez. Information from the SBAR was given. All rb1 questions asked and answered. Vital Signs: 11/22 20:51 BP 137 / 83; Pulse 75; Resp 16 S; Temp 98.7(O); Pulse Ox 98% on R/A; Weight 118.39 kg ca1 (R); Height 5 ft. 4 in. (162.56 cm) (R); 20:51 Body Mass Index 44.80 (118.39 kg, 162.56 cm) ca1 ED Course: 20:47 Patient arrived in ED. am2 20:47 NATHALY COTA is Private Physician. am2 20:54 Triage completed. ca1 20:55 Arm band placed on right wrist. ca1 21:18 Viral Mccall, ELMA is Primary Nurse. mg2 21:25 Nikolas Serrano MD is Attending Physician. sylvia 21:30 Inserted saline lock: 20 gauge in right antecubital area, using aseptic technique. mg2 Blood collected. 21:39 Radiology exam delayed due to IV insertion attempt and/or patient not having vm2 appropriate IV at this time. 21:57 No provider procedures requiring assistance completed. mg2 21:58 Patient has correct armband on for positive identification. Door closed. Warm blanket mg2 given. 22:06 Chest Single View XRAY In Process Unspecified. EDMS 22:15 CT Abd/Pelvis - IV Contrast Only In Process Unspecified. EDMS 22:22 Raul Nieves MD is Hospitalizing Provider. [facility] 11/23 00:05 Patient admitted, IV remains in place. mg2 10:50 No provider procedures requiring assistance completed. Patient admitted, IV remains in rb1 place. Administered Medications: 11/22 21:55 Drug: Pepcid 20 mg Route: IVP; Site: right antecubital; mg2 22:41 Follow up: Response: No adverse reaction mg2 21:56 Drug: NS 0.9% 1000 ml Route: IV; Rate: 1 bolus; Site: right antecubital; mg2 11/23 00:44 Follow up: Response: No adverse reaction; IV Status: Completed infusion; IV Intake: mg2 1000ml 11/22 21:56 Drug: morphine 4 mg Route: IVP; Site: right antecubital; mg2 22:41 Follow up: Response: No adverse reaction mg2 21:56 Drug: Zofran (Ondansetron) 4 mg Route: IVP; Site: right antecubital; mg2 22:41 Follow up: Response: No adverse reaction mg2 Intake: 11/23 00:44 IV: 1000ml; Total: 1000ml. mg2 Outcome: 11/22 22:23 Decision to Hospitalize by Provider. [facility] 11/23 00:05 Admitted to ER Hold. Please see iPowow for further documentation. mg2 00:05 Condition: stable mg2 10:50 Admitted to Med/surg accompanied by tech, via wheelchair, room 215, with chart, Report rb1 called to ELMA Alvarez 10:50 Condition: stable 10:50 Instructed on the need for admit. 11:02 Patient left the ED. rb1 Signatures: Dispatcher [employer] EDNikolas Castro MD MD cha Barber, Rebecca, RN RN rb1 Kristine Barreto Debbie Dye [facility] Viral Mccall RN RN mg2 Johanna Johnson RN RN ca1
--- NOTE | 2019-11-23 22:24 | EDPHYS ---
Physician Documentation [facility] Name: Meredith Marroquin Age: 34 yrs Sex: Female : 1985 Arrival Date: 11/23/2019 Time: 20:47 Bed 13 Private MD: NATHALY COTA ED Physician Nikolas Serrano HPI: 11/22 22:15 This 34 yrs old Female presents to ER via Wheelchair with complaints of Post sylvia Surgical Pain. 22:15 The patient presents with abdominal pain abdominal distention in the epigastric area, sylvia in the upper abdomen. Onset: The symptoms/episode began/occurred today. The symptoms do not radiate. Associated signs and symptoms: Pertinent positives: nausea. The symptoms are described as constant, crampy. Modifying factors: The symptoms are alleviated by nothing, the symptoms are aggravated by nothing. Severity of pain: At its worst the pain was moderate in the emergency department the pain is unchanged. The patient has not experienced similar symptoms in the past. had lap deacon by dr rios today, this morning. 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 - Social history:: Smoking status: Patient denies any tobacco usage or history of. - Family history:: not pertinent. ROS: 22:15 Constitutional: Negative for fever, chills, and weight loss, Eyes: Negative for injury, sylvia pain, redness, and discharge, ENT: Negative for injury, pain, and discharge, Neck: Negative for injury, pain, and swelling, Cardiovascular: Negative for chest pain, palpitations, and edema, Respiratory: Negative for shortness of breath, cough, wheezing, and pleuritic chest pain, Back: Negative for injury and pain, : Negative for injury, bleeding, discharge, and swelling, MS/Extremity: Negative for injury and deformity, Skin: Negative for injury, rash, and discoloration, Neuro: Negative for headache, weakness, numbness, tingling, and seizure, Psych: Negative for depression, anxiety, suicide ideation, homicidal ideation, and hallucinations, Allergy/Immunology: Negative for hives, rash, and allergies, Endocrine: Negative for neck swelling, polydipsia, polyuria, polyphagia, and marked weight changes, Hematologic/Lymphatic: Negative for swollen nodes, abnormal bleeding, and unusual bruising. 22:15 Abdomen/GI: Positive for abdominal pain, nausea, of the epigastric area, right upper quadrant, left upper quadrant and right lower quadrant. Exam: 22:15 Constitutional: This is a well developed, well nourished patient who is awake, alert, sylvia and in no acute distress. Head/Face: Normocephalic, atraumatic. Eyes: Pupils equal round and reactive to light, extra-ocular motions intact. Lids and lashes normal. Conjunctiva and sclera are non-icteric and not injected. Cornea within normal limits. Periorbital areas with no swelling, redness, or edema. ENT: Nares patent. No nasal discharge, no septal abnormalities noted. Tympanic membranes are normal and external auditory canals are clear. Oropharynx with no redness, swelling, or masses, exudates, or evidence of obstruction, uvula midline. Mucous membranes moist. Neck: Trachea midline, no thyromegaly or masses palpated, and no cervical lymphadenopathy. Supple, full range of motion without nuchal rigidity, or vertebral point tenderness. No Meningismus. Chest/axilla: Normal chest wall appearance and motion. Nontender with no deformity. No lesions are appreciated. Cardiovascular: Regular rate and rhythm with a normal S1 and S2. No gallops, murmurs, or rubs. Normal PMI, no JVD. No pulse deficits. Respiratory: Lungs have equal breath sounds bilaterally, clear to auscultation and percussion. No rales, rhonchi or wheezes noted. No increased work of breathing, no retractions or nasal flaring. Back: No spinal tenderness. No costovertebral tenderness. Full range of motion. Skin: Warm, dry with normal turgor. Normal color with no rashes, no lesions, and no evidence of cellulitis. MS/ Extremity: Pulses equal, no cyanosis. Neurovascular intact. Full, normal range of motion. Neuro: Awake and alert, GCS 15, oriented to person, place, time, and situation. Cranial nerves II-XII grossly intact. Motor strength 5/5 in all extremities. Sensory grossly intact. Cerebellar exam normal. Normal gait. Psych: Awake, alert, with orientation to person, place and time. Behavior, mood, and affect are within normal limits. 22:15 Abdomen/GI: Inspection: distension, Bowel sounds: normal, Palpation: mild abdominal tenderness, moderate abdominal tenderness, in the epigastric area, right upper quadrant, left upper quadrant and right lower quadrant, Liver: no appreciated palpable abnormalities, Hernia: not appreciated. Vital Signs: 20:51 BP 137 / 83; Pulse 75; Resp 16 S; Temp 98.7(O); Pulse Ox 98% on R/A; Weight 118.39 kg ca1 (R); Height 5 ft. 4 in. (162.56 cm) (R); 20:51 Body Mass Index 44.80 (118.39 kg, 162.56 cm) ca1 MDM: 21:25 Patient medically screened. sylvia 22:19 Differential diagnosis: bowel obstruction, gastritis, gastroesophageal reflux disease, sylvia non-specific abd pain, pancreatitis, Peritonitis, urinary tract infection. Data reviewed: vital signs, nurses notes, lab test result(s), radiologic studies, CT scan, plain films. Data interpreted: site monitor: not applicable for this patient encounter. rate is 75 beats/min, Pulse oximetry: on room air is 98 %. Test interpretation: by ED physician or midlevel provider: plain radiologic studies. Counseling: I had a detailed discussion with the patient and/or guardian regarding: the historical points, exam findings, and any diagnostic results supporting the discharge/admit diagnosis, lab results, radiology results, the need for further work-up and treatment in the hospital. ED course: discussed all labs, ct will admit dr rios for obs. 22:22 Medication response: Zofran partially relieved the patient's nausea. [facility] 11/22 21:27 Order name: Basic Metabolic Panel; Complete Time: 23:23 [facility] 11/22 21:27 Order name: CBC with Diff; Complete Time: 23:23 [facility] 11/22 21:27 Order name: Hepatic Function; Complete Time: 23:23 [facility] 11/22 21:27 Order name: Lipase; Complete Time: 23:23 [facility] 11/22 21:56 Order name: Manual Differential; Complete Time: 23:23 EDMS 11/23 00:51 Order name: Urine Dipstick--Ancillary (enter results) ar5 11/22 21:27 Order name: Chest Single View XRAY; Complete Time: 23:23 [facility] 11/22 21:27 Order name: CT Abd/Pelvis - IV Contrast Only [facility] 11/22 23:25 Order name: INCENTIVE SPIROMETRY [facility] 11/23 00:59 Order name: Urine Dipstick-Ancillary; Complete Time: 01:29 [facility] 11/23 05:47 Order name: CBC with Automated Diff [facility] 11/23 06:08 Order name: Basic Metabolic Panel [facility] 11/23 06:08 Order name: Liver (Hepatic) Function [facility] 11/23 06:08 Order name: Lipase [facility] 11/22 21:27 Order name: IV Saline Lock; Complete Time: 21:33 [facility] 11/22 21:27 Order name: Labs collected and sent; Complete Time: 21:34 [facility] 11/22 21:27 Order name: Urine Dipstick-Ancillary (obtain specimen); Complete Time: 00:44 [facility] 11/22 21:27 Order name: Urine Test (obtain specimen); Complete Time: 00:44 [facility] Administered Medications: 21:55 Drug: Pepcid 20 mg Route: IVP; Site: right antecubital; mg2 22:41 Follow up: Response: No adverse reaction mg2 21:56 Drug: NS 0.9% 1000 ml Route: IV; Rate: 1 bolus; Site: right antecubital; mg2 11/23 00:44 Follow up: Response: No adverse reaction; IV Status: Completed infusion; IV Intake: mg2 1000ml 11/22 21:56 Drug: morphine 4 mg Route: IVP; Site: right antecubital; mg2 22:41 Follow up: Response: No adverse reaction mg2 21:56 Drug: Zofran (Ondansetron) 4 mg Route: IVP; Site: right antecubital; mg2 22:41 Follow up: Response: No adverse reaction mg2 Disposition: 11/23/19 22:23 Hospitalization ordered by Raul Rios for Observation. Preliminary diagnosis are Abdominal tenderness - sp lap appy, Bandemia, Atelectasis. - Bed requested for Telemetry/MedSurg (observation). - Status is Observation. rb1 - Condition is Stable. - Problem is new. - Symptoms have improved. Signatures: Dispatcher [employer] EDRadha Lopez RN RN dw Anderson, Corey, MD MD cha Garcia, Cindy, RN RN cg Barber Katelynn, ELMA RN rb1 Viral Mccall RN RN mg2 Johanna Johnson RN RN ca1 Corrections: (The following items were deleted from the chart) 23:24 22:23 Hospitalization Ordered by Raul Rios MD for Observation. Preliminary diagnosis sylvia is Abdominal tenderness - sp lap appy. Bed requested for Telemetry/MedSurg (observation). Status is Observation. Condition is Stable. Problem is new. Symptoms have improved. sylvia 23:34 23:24 11/23/2019 22:23 Hospitalization Ordered by Raul Rios MD for Observation. cg Preliminary diagnosis is Abdominal tenderness - sp lap appy; Bandemia; Atelectasis. Bed requested for Telemetry/MedSurg (observation). Status is Observation. Condition is Stable. Problem is new. Symptoms have improved. sylvia 11/23 09:00 11/22 23:34 11/23/2019 22:23 Hospitalization Ordered by Raul Rios MD for Observation. dw Preliminary diagnosis is Abdominal tenderness - sp lap appy; Bandemia; Atelectasis. Bed requested for [facility] ER HOLD. Status is Observation. Condition is Stable. Problem is new. Symptoms have improved. cg 11/23 09:00 09:00 11/23/2019 22:23 Hospitalization Ordered by Raul Rios MD for Observation. dw Preliminary diagnosis is Abdominal tenderness - sp lap appy; Bandemia; Atelectasis. Bed requested for Telemetry/MedSurg (observation). Status is Observation. Condition is Stable. Problem is new. Symptoms have improved. dw 11:02 09:00 11/23/2019 22:23 Hospitalization Ordered by Raul Rios MD for Observation. rb1 Preliminary diagnosis is Abdominal tenderness - sp lap appy; Bandemia; Atelectasis. Bed requested for Telemetry/MedSurg (observation). Status is Observation. Condition is Stable. Problem is new. Symptoms have improved. dw
--- NOTE | 2019-11-23 22:33 | RAD REPORT ---
EXAM DESCRIPTION: RAD - Chest Single View - 11/23/2019 10:05 pm CLINICAL HISTORY: ABDOMINAL DISTENTION Chest pain. COMPARISON: ABDOMEN 1 VIEW KUB dated 02/27/2013 FINDINGS: Portable technique limits examination quality. Mild linear atelectasis is seen in the right mid lung. The lungs are otherwise grossly clear. The hea rt is mildly prominent in size. No displaced fractures.
[2019-11-23 22:47] LABS: Blood Morphology Comment NOT SEEN (NOT SEEN); Platelet Estimate ADEQ
[2019-11-24 00:30] VITALS: BMI 49.3
[2019-11-24] MEDS: D5 0.45 NS 1,000 ML IV SCH ×3 (00:37→18:47)
[2019-11-24] MEDS ORDERED: ACETAMINOPHEN 500 MG TAB PO PRN (00:37)
[2019-11-24] MEDS ORDERED: MORPHINE 4 MG/ML SYR IV PRN (00:37)
[2019-11-24 00:59] LABS: Urine Blood 1+ (NEG); Urine Glucose NEGATIVE (NEG); Urine Protein NEGATIVE (NEG); Urine Specific Gravity <1.005 (1.005-1.030); Urine pH 5.5 (5.0-7.0)
[2019-11-24] MEDS ORDERED: D5 0.45 NS 1,000 ML IV ONE ×2 (01:23→09:41)
[2019-11-24] MEDS: ONDANSETRON 4 MG/2 ML VIAL IV PRN ×2 (03:42→11:21)
[2019-11-24] MEDS ORDERED: MORPHINE 4 MG/ML SYR ONE (03:48)
[2019-11-24] MEDS ORDERED: ONDANSETRON 4 MG/2 ML VIAL ONE (03:48)
[2019-11-24 05:36] LABS: Absolute Lymphocytes (CBC) 1.5 K/uL (0.7-4.9); Basophils % 0.4 % (0-1.3); Hematocrit 36.2 % (36.0-45.0); Lymphocytes % 13.8 % (15.3-44.8)
[2019-11-24 06:08] LABS: ALT/SGPT 68 U/L (12-78); AST/SGOT 45 U/L (15-37); Albumin 3.1 g/dL (3.4-5.0); Alkaline Phosphatase 72 U/L (45-117); BUN Blood Urea Nitrogen 8 mg/dL (7-18); Bicarbonate 27 mmol/L (21-32); Bilirubin Direct 0.1 mg/dL (0-0.2); Bilirubin Total 0.4 mg/dL (0.2-1.0); Glucose Level 113 mg/dL (74-106); Lipase 247 U/L (73-393); Potassium 3.8 mmol/L (3.5-5.1); Protein, Total 7.1 g/dL (6.4-8.2); Sodium Level 142 mmol/L (136-145)
[2019-11-24] MEDS ORDERED: FAMOTIDINE 20 MG/2 ML VIAL IV SCH (09:00)
[2019-11-24] MEDS ORDERED: FAMOTIDINE 20 MG/2 ML VIAL IV ONE (09:41)
[2019-11-24] MEDS: HYDROCODONE/APAP 7.5/325 MG TAB PO PRN ×3 (10:40→20:56)
[2019-11-24] MEDS ORDERED: HYDROCODONE/APAP 7.5/325 MG TAB ONE (10:48)
[2019-11-24 11:22] VITALS: O2SAT 98
[2019-11-24] MEDS: MAGNES/ALUMIN/SIMET 30ML UCUP PO PRN (12:18)
[2019-11-24] MEDS ORDERED: SODIUM CHLORIDE 0.9% 10ML INJ IV PRN (13:24)
[2019-11-24] MEDS ORDERED: HYDROMORPHONE HCL 1 MG/ML INJ IV PRN (13:58)
[2019-11-24] MEDS: CEFOXITIN/SWI 1gm 1 GM/10 ML SYR IVP SCH ×2 (16:29→17:54)
--- NOTE | 2019-11-24 16:46 | RAD REPORT ---
EXAM DESCRIPTION: CT ABDOMEN AND PELVIS WITH CONTRAST CLINICAL HISTORY: Abdominal pain. Postcholecystectomy. COMPARISON: 02/21/2019 TECHNIQUE: CT of the abdomen and pelvis performed following IV administration of iodinated contras t.. FINDINGS: Lung Bases: Linear bibasilar opacities possibly related to discoid atelectasis. Bones: No destructive bone lesions identified. Abdomen: Liver: Hepatomegaly and hepatic steatosis. Gallbladder: Cholecystectomy. Minimal fat stranding in the gallbladder fossa. Likely postoperative. N o pericholecystic fluid collection. Spleen, Pancreas, and Adrenal Glands: The spleen, pancreas, and adrenal glands are unremarkable. Kidneys: No hydronephrosis or obstructing calculus. Vasculature: Aortoiliac atherosclerosis. IVC is unremarkable. The portal vein is patent. The proxim al visceral and renal arteries are patent. Stomach: The stomach and duodenum have normal course. Other: Scattered free air in the abdominal wall is postoperative. Trace free fluid may be postope rative. Surgical shanon in the anterior abdominal wall. Pelvis: Bladder: Urinary bladder is unremarkable. Bowel: No dilated loops of large or small bowel. Appendix: Normal appendix. Pelvis: Intrauterine contraceptive device within the uterus. IMPRESSION: 1. Cholecystectomy. Minimal fat stranding in the gallbladder fossa is likely postoperati ve. No definite pericholecystic fluid collection. Trace free air and fluid are postoperative. No sign ificant volume of free air or fluid. 2. Hepatomegaly and hepatic steatosis. 3. Bibasilar discoid atelectasis. 4. IUD in place. This exam was performed according to our departmental dose-optimization program, which includes autom ated exposure control, adjustment of the mA and/or kV according to patient size and/or use of iterati ve reconstruction technique. Electronically signed by: Vamshi Crum 11/23/2019 10:29 PM CDT Due to temporary technical issues with the PACS/Fluency reporting system, reports are being signed by the in house radiologist without review as a courtesy to ensure prompt reporting. The interpreting r adiologist is fully responsible for the content of the report.
[2019-11-24] MEDS ORDERED: CEFOXITIN SODIUM 1 GM/VIAL IVPB SCH (18:00)
[2019-11-24] MEDS: PANTOPRAZOLE 40 MG INJ IVP SCH (20:55)
--- NOTE | 2019-11-24 22:19 | HP ---
Date of Admission: 11/23/2019 Reason: Abdominal pain. History Of Present Illness: The patient is a 34-year-old female, who underwent a lap deacon for chron ic cholecystitis, biliary dyskinesia and excision of back mass yesterday. She contacted me last nigh t stating that she was in exquisite pain. I told her to try Advil. She stated that that did not hel p along with the Tylenol No. #3. So, I told her to come to the emergency room. She was evaluated. She had a CAT scan done, which showed cholecystectomy, minimal stranding in the gallbladder fossa lik anali postoperative. No definitive pericholecystic fluid collection. Trace free air and fluid are pos toperative. No significant volume of free air or fluid. Hepatomegaly and hepatic steatosis. Her pa in required parenteral pain management. Therefore, she was admitted for parenteral pain control as w ell as some dyspepsia. She is awake, alert, feels a little better this morning. No nausea or vomiti ng. Did not eat much of the breakfast because she had a burning sensation in her lower chest and upp er abdomen. No diarrhea or constipation. No sore throat, runny nose, cough, headaches, or dizziness . No chest pain. Review of Systems: Otherwise unremarkable. Past Medical History: Negative. Past Surgical History: Recent lap deacon and excision of a back mass and x3. Allergies: NO ALLERGIES. Social History: She denies smoking or drinking. Family History: Noncontributory. Physical Examination: Vital Signs: Stable. She is currently afebrile. General: She is awake, alert, and oriented x3. Head and Neck: Cranial nerves 2 through 12 are grossly within normal limits. No neck masses. No JV D. Throat clear. Neck supple. Chest: Clear. Heart: S1 and S2. Abdomen: Soft, nondistended. Positive bowel sounds. Dressing is clean, dry, and intact. Extremities: Adequately perfused. Nontender. Neuro: Nonfocal. Laboratory Data: White count this morning is 10.8 with slight left shift. Electrolytes reviewed. T otal bilirubin is within normal limits. Alkaline phosphatase is within normal limits. AST is slight ly elevated at 45. Lipase is within normal limits. CT of the abdomen per HPI as well as the patient has some discoid bilateral basilar atelectasis. Assessment: Abdominal pain, dyspepsia following a laparoscopic cholecystectomy. Recommendations: We will start her on proton pump inhibitor, Maalox, p.o. diet, encourage ambulation , incentive spirometry and hopefully once we get her pain controlled and dyspepsia under control and she is tolerating regular diet, pain is controlled on oral medications, then we will discharge home. SUKHWINDER/LOREN Voice ID: [id number]
[2019-11-25] MEDS: CEFOXITIN/SWI 1gm 1 GM/10 ML SYR IVP SCH ×2 (00:56→06:18)
[2019-11-25] MEDS: D5 0.45 NS 1,000 ML IV SCH ×2 (03:11→08:37)
[2019-11-25] MEDS: HYDROCODONE/APAP 7.5/325 MG TAB PO PRN ×2 (03:42→09:02)
[2019-11-25] MEDS: PANTOPRAZOLE 40 MG INJ IVP SCH (09:02)
[2019-11-25] MEDS: MAGNES/ALUMIN/SIMET 30ML UCUP PO PRN (09:08)
[2019-11-25] MEDS: ONDANSETRON 4 MG/2 ML VIAL IV PRN (09:10)
[2019-11-25 09:33] VITALS: BP 125/74; TEMP 97.2
--- NOTE | 2019-11-25 10:10 | DS ---
Date of Discharge: 11/25/2019 Admitting Diagnosis: Abdominal pain, dyspepsia status post laparoscopic cholecystectomy. Discharge Diagnosis: Abdominal pain, dyspepsia status post laparoscopic cholecystectomy. Hospital Course: The patient is a 34-year-old female, who had an operation procedure of lap deacon an d excision of back mass on Saturday morning, was sent home, then called me to say that she had a lot of pain and then she was brought to the ER. Workup was done. Workup was essentially negative and she was admitted for parenteral pain management. Today, she is tolerating diet, ambulating, pain control , p.o. pain medication, and afebrile and occasional nausea. Therefore, the patient will be discharge d home. Disposition: Home. Condition: Stable. Discharge Instructions: Resume home medications and diet. Activity as tolerated. No heavy lifting. Remove outer dressing in a.m. Shower. Keep wound clean and dry, and dry gauze back to wound daily . Eldred 7.5/325 one tablet p.o. every 4 p.r.n. pain. Phenergan 25 mg p.o. q.6 p.r.n. nausea. Follo w up in my office in a week. Call for appointment. SUKHWINDER/LOREN Voice ID: [id number] Report ID: [id number]
== END 2019-11-25 11:07 | disposition home or self-care (01) ==
LOC: ER 20:45 → ERHOLD 22:26 → 2ND 11-24 10:33
PROVIDERS: ADMIT Surgery; ATTEND Surgery
DX: G89.18 Other acute postprocedural pain (principal); R10.13 Epigastric pain; D72.825 Bandemia; J98.11 Atelectasis
CPT/HCPCS: 96361; 85025 ×2; 80048 ×2; 36415; 80076 ×2; 81003; 83690 ×2; 74177; 71045; 96375; 96374; 99285; Q9967; C9113 ×2; J7799 ×4; J7030; J2405 ×4; G0378 ×3; J1170